=== PATIENT | female | born 1950 | race Caucasian/White ===

== ENCOUNTER → 2017-03-09 | Outpatient (CLI) | payer OTHER | LOC: BHFA 14:45 | PROVIDERS: ATTEND Internal Medicine Cardiovascular Disease | DX: I25.10 Atherosclerotic heart disease of native coronary artery without angina pectoris (principal); E78.5 Hyperlipidemia, unspecified ==

== ENCOUNTER 2017-10-25 16:30 | Emergency (ER) | payer OTHER ==
[2017-10-25 16:38] VITALS: TEMP 98.6
--- NOTE | 2017-10-25 16:55 | EDPHY ---
HPI/HX/ROS/PE/MDM Narrative: CHIEF COMPLAINT: Neck pain secondary to falling while skiing HPI: The patient is a 67 y/o female with a history of hepatitis C complaining of neck pain that is radiating to her back secondary to falling while [place] skiing today at 15:00, 2 hours ago. She fell backwards and felt like her head "snapped back hard". Her neck made several popping sounds upon impact. No loss of consciousness after the fall. She is currently having a dull pain in her neck. A similar fall occurred 5 years ago. No headache, paresthesias, numbness, chest pain, shortness of breath, fever, chills. REVIEW OF SYSTEMS: Aside from elements discussed in the HPI, a comprehensive 10-point review of systems was reviewed and is negative. PMH: Hepatitis C SOCIAL HISTORY: , lives in [place], retired PHYSICAL EXAM: General: Patient is alert, in no acute distress. ENT: Eyes are normal to inspection. ENT inspection normal. Neck: Midline tenderness at C7. Full range of motion. Respiratory: No respiratory distress. Breath sounds normal bilaterally. Cardiovascular: Regular rate and rhythm. Strong peripheral pulses. Normal cap refill. Abdomen: The abdomen is nontender to palpation. There are no peritoneal signs. There are normal bowel sounds. Back: Normal to inspection. No tenderness to palpation. Skin: Normal color. No rash. Warm and dry. Extremities: Normal appearance. Full range of motion. Neuro: Oriented x3. Flat affect. Normal motor function. Normal sensory function. ED Course: 182: Spoke with radiologist regarding this patient's c-spine CT, it is negative. Her symptoms are consistent with a neck strain. 183: Reassessed patient and discussed imaging findings. I have referred her to Dr. Cota, neurosurgeon, for worsening symptoms. Return precautions provided; patient is comfortable with this plan. MDM: This patient presents with midline neck pain after a fall while skiing. CTcspine is negative for fracture or acute injury. She shows no signs of neurologic injury. Remainder of exam is normal. She feels comfortable going home. - Data Points Imaging Results: Imaging Impressions Cervical Spine CT 10/25/17 17:20 Impression: 1. Mild depression anterior superior corner of C5 probably related to anterior Schmorl's node or remote trauma. No acute abnormal body seen associated with the cervical spine. These findings were discussed by telephone with Dr. Farhan Munoz at 1823 hrs. Imaging: Discussed imaging studies w/ hot tar roofer Radiologist, I viewed and interpreted images myself General Time Seen by Provider: 10/25/17 16:43 Initial Vital Signs: Initial Vital Signs Temperature (C) 37.0 C 10/25/17 16:33 Heart Rate 88 10/25/17 16:33 Respiratory Rate 18 10/25/17 16:33 Blood Pressure 143/109 H 10/25/17 16:33 O2 Sat (%) 98 10/25/17 16:33 O2 Delivery Mode Room Air Allergies/Adverse Reactions: No Known Allergies Allergy (Verified 10/25/17 16:32) Home Medications: Medication Instructions Recorded Lipitor 10/25/17 Departure - Departure Disposition: Home, Routine, Self-Care Clinical Impression: Cervical strain, acute Condition: Good Instructions: Cervical Strain (ED) Additional Instructions: Use ibuprofen as directed. Return to the emergency department immediately for severe pain, numbness, weakness, tingling, headache, difficulty walking or other complaints. Followup with a neurosurgeon in the next week, you have been referred to Dr. Cota. Followup with your primary physician within one week for reevaluation. Referrals: Fatimah Abdullahi MD [Primary Care Provider] - As per Instructions Argelia Cota DO [Doctor of Osteopathy] - As per Instructions Report Scribed for: Farhan Munoz Report Scribed by: Ann Nguyen Date of Report: 10/25/17 Time of Report: 16:55 Physician Review and Approval Statement: Portions of this note were transcribed by an ED scribe. I personally performed the history, physical exam, and medical decision making; and confirm the accuracy of the information in the transcribed note.
[2017-10-25 18:35] VITALS: BP 126/88; PULSE 75; RESP 16; O2SAT 96
== END 2017-10-25 18:39 | disposition home or self-care (01) ==
DX: S16.1XXA Strain of muscle, fascia and tendon at neck level, initial encounter (principal); V00.321A Fall from snow-skis, initial encounter; Y93.23 Activity, snow (alpine) (downhill) skiing, snowboarding, sledding, tobogganing and snow tubing